=== PATIENT | male | born 1960 | race Caucasian/White ===

== ENCOUNTER 2018-12-14 07:58 | Day surgery (SDC) | payer OTHER ==
[~2018-12-14] VITALS: Ht 185.4 cm; Wt 143.3 kg
[~2018-12-14 07:58] MED LIST: ALBU90OI61; Amlodipine Bes2.5 MG; Celexa40 MG; GLIP5; HYDCHL25; IBUP800 PO; METF500 PO; METO50; Norco 5-325 Ta1 EACH PO; Robaxin-750750 MG PO
--- NOTE | 2018-12-14 08:42 | NUR ---
Ambulatory in Day SurgeryPatient states colon prep results clear. History, Chart, Medications and Allergies reviewed before start of procedure.Lungs clear T/O to Auscultation. Patient confirms NPO status and agrees with scheduled surgery. Patient States Post-Procedure ride home has been arranged.
--- NOTE | 2018-12-14 09:13 | NUR ---
12/14/18 0913 Tai Arita History, Chart, Medications and Allergies reviewed before start of procedure.MONITOR INTACT WITH CONTINUOUS PULSE OXIMETRY AND INTERMITTENT BP.3-LEAD EKG REVIEWED WITH PHYSICIAN PRIOR TO START OF PROCEDURE.O2 VIA N/C INTACT THROUGHOUT SEDATION/PROCEDURE. Patient confirms NPO status and agrees with scheduled surgery.
--- NOTE | 2018-12-14 10:38 | NUR ---
Discharge instructions reviewed with patient. Patient verbalizes understanding. Copy given to patient to take home. Discharged via wheelchair to private car for ride home. TOLERATED WATER WELL.
== END 2018-12-14 10:40 | disposition home or self-care (01) ==
LOC: ORSCMMR 07:58 → ORD 09:00 → ORSCMMR 09:00
PROVIDERS: Internal Medicine Gastroenterology
PROC: 3E0H8GC Introduction of Other Therapeutic Substance into Lower GI, Via Natural or Artificial Opening Endoscopic (ICD-10-PCS; principal; 2018-12-14 09:00)
PROC: 0DBC8ZX Excision of Ileocecal Valve, Via Natural or Artificial Opening Endoscopic, Diagnostic (ICD-10-PCS; principal; 2018-12-14 09:00)
PROC: 0DBN8ZX Excision of Sigmoid Colon, Via Natural or Artificial Opening Endoscopic, Diagnostic (ICD-10-PCS; principal; 2018-12-14 09:00)
PROC: 0DBM8ZX Excision of Descending Colon, Via Natural or Artificial Opening Endoscopic, Diagnostic (ICD-10-PCS; principal; 2018-12-14 09:00)
DX: K62.5 Hemorrhage of anus and rectum (principal); C18.7 Malignant neoplasm of sigmoid colon; D12.2 Benign neoplasm of ascending colon; D12.4 Benign neoplasm of descending colon; D12.5 Benign neoplasm of sigmoid colon; I10 Essential (primary) hypertension; E78.00 Pure hypercholesterolemia, unspecified; F32.9 Major depressive disorder, single episode, unspecified; E11.9 Type 2 diabetes mellitus without complications; E66.01 Morbid (severe) obesity due to excess calories; Z68.41 Body mass index [BMI] 40.0-44.9, adult; F17.220 Nicotine dependence, chewing tobacco, uncomplicated; Z79.84 Long term (current) use of oral hypoglycemic drugs; Z79.899 Other long term (current) drug therapy
CPT/HCPCS: 82947; 88305; J2250; J3010; J7120

== ENCOUNTER 2019-01-16 12:45 | Emergency (ER) | payer OTHER ==
[~2019-01-16] VITALS: Ht 185.4 cm; Wt 142.9 kg
[2019-01-16] MEDS ORDERED: Flomax0.4 MG PO (16:00)
== END 2019-01-16 18:51 | disposition home or self-care (01) ==
LOC: ER 12:45
DX: K94.03 Colostomy malfunction (principal); Z79.899 Other long term (current) drug therapy; Z79.84 Long term (current) use of oral hypoglycemic drugs; E11.9 Type 2 diabetes mellitus without complications; F17.220 Nicotine dependence, chewing tobacco, uncomplicated
CPT/HCPCS: 99283

== ENCOUNTER 2019-02-03 18:08 | Inpatient (IN) | payer OTHER ==
[~2019-02-03] VITALS: Ht 185.4 cm; Wt 143.5 kg
[~2019-02-03 18:08] MED LIST changes: +Flomax0.4 MG PO
[2019-02-03 19:12] LABS: BASOPHILS ABSOLUTE AUTO 0.05 K/mm3 (0.00-0.23); BASOPHILS PERCENT AUTO 1 % (0-2); EOSINOPHILS ABSOLUTE AUTO 0.39 K/mm3 (0.00-0.68); EOSINOPHILS PERCENT AUTO 4 % (0-6); Hematocrit 35.8 % (37.0-53.0); Hemoglobin 12.2 g/dL (13.5-17.5); IMMATURE GRAN ABSOLUTE AUTO 0.07 K/mm3 (0.00-0.10); IMMATURE GRAN PERCENT AUTO 1 % (0-1); LYMPHOCYTES ABSOLUTE AUTO 1.19 K/mm3 (0.84-5.20); LYMPHOCYTES PERCENT AUTO 11 % (21-46); MONOCYTES ABSOLUTE AUTO 1.02 K/mm3 (0.16-1.47); MONOCYTES PERCENT AUTO 10 % (4-13); Mean Corpuscular HGB Conc 34.1 g/dL (31.5-36.5); Mean Corpuscular Volume 94 fL (80-100); Mean Platelet Volume 10.1 fL (9.1-12.4); NEUTROPHILS ABSOLUTE AUTO 7.73 K/mm3 (1.96-9.15); NEUTROPHILS PERCENT AUTO 74 % (41-73); Platelet Count 158 K/mm3 (150-400); RDW Coefficient Variation 12.9 % (11.7-14.2); RDW Standard Deviation 44.6 fL (35.1-46.3); Red Blood Cell Count 3.81 M/mm3 (4.30-5.90); White Blood Cell Count 10.45 K/mm3 (4.00-11.30)
[2019-02-03 19:29] LABS: Albumin, Blood 1.8 g/dL (3.4-5.0); Albumin/Globulin Ratio 0.3 (0.8-1.8); Bilirubin, Total 0.9 mg/dL (0.1-1.0); Calcium, Blood 7.2 mg/dL (8.5-10.1); Creatinine, Blood 4.21 mg/dL (0.60-1.20); Globulin, Blood 5.3 g/dL (2.2-4.0); Potassium, Blood 4.9 mmol/L (3.5-5.5); Total Protein, Blood 7.1 g/dL (6.4-8.2)
[2019-02-03] MEDS ORDERED: TAMS.4ER PO (19:34)
[2019-02-03] MEDS ORDERED: Lopressor 50 mg50 MG PO (19:34)
[2019-02-03] MEDS ORDERED: Lovastatin10 MG PO (19:34)
[2019-02-03] MEDS ORDERED: Citalopram HBr40 MG PO (19:35)
[2019-02-03] MEDS ORDERED: GLIP5 PO (19:35)
[2019-02-03 20:19] LABS: Free Thyroxine 1.39 ng/dL (0.70-1.60); Magnesium, Blood 3.1 mg/dL (1.6-2.4)
[2019-02-03 20:23] LABS: Phosphorus, Blood 6.8 mg/dL (2.5-4.9); Thyroid Stimulating Hormone 2.62 uIU/mL (0.360-4.800); Triiodothyronine, Free 1.34 pg/mL (2.18-3.98)
[2019-02-03] MEDS ORDERED: ZESTRIL40 MG PO (20:30)
[2019-02-03] MEDS ORDERED: BREO ELLIPTA 11 EACH INH (20:31)
[2019-02-03] MEDS ORDERED: HYDCHL25 PO (20:33)
[2019-02-03] MEDS ORDERED: Amlodipine Bes2.5 MG PO (20:34)
[2019-02-03] MEDS ORDERED: DOK100 MG PO (20:35)
[2019-02-03] MEDS ORDERED: OXYC5 PO (20:56)
[2019-02-03 22:03] LABS: Source, Urine Clean Catch
[2019-02-03 22:05] LABS: Bilirubin, Urine Neg (Neg); Blood, Urine 5+ (Neg); Glucose Qualitative, Urine Neg (Neg); Ketones, Urine 1+ (Neg); Leukocyte Esterase, Urine 3+ (Neg); Nitrite, Urine Neg (Neg); Protein, Urine 2+ (Neg); Urobilinogen, Urine 1+ (Normal)
[2019-02-03 22:18] LABS: Appearance, Urine Cloudy (Clear); Color, Urine Yellow (P-Yellow)
[2019-02-03 22:19] LABS: Bacteria Many /hpf; Red Blood Cells, Urine 0-2 /hpf (0-2); Squamous Epithelial Cells Not Seen /hpf (Few); White Blood Cells, Urine TNTC /hpf (0-5)
[2019-02-03] MEDS ORDERED: Hair, Skin & N1 EACH PO (23:20)
[2019-02-03] MEDS ORDERED: ASCO500 PO (23:21)
--- NOTE | 2019-02-04 | NUR ---
PT ADMITTED TO ROOM ICU 9 FROM ED AT 2240. PT ADMITTED UNDER PCU STATUS. PT ABLE TO PIVOT TRANSFER FROM [facility] TO BED. ALERT AND ORIENTED. PLEASANT AND COOPERATIVE WITH CARE AND ASSESSMENT. PT HAS FRANKLIN CATHETER THAT HAS A PURULENT/CLOUDY URINE. SAMPLE HAS BEEN SENT TO LAB FOR PROCESSING. TIM PETERS NP COMES TO ROOM. ORDERS RECEIVED. PT RECEIVED ROCEPHIN WITHOUT S/S ADVERSE REACTIONS TO NOTE. PT GOOD HISTORIAN. HAS HAD RECENT BOWEL SURGERY FOR RESECTION SECONDARY TO BOWEL CANCER. WILL REVIEW CHART AND PLAN OF CARE FOR THIS PT.
[2019-02-04 05:22] LABS: BASOPHILS ABSOLUTE AUTO 0.05 K/mm3 (0.00-0.23); BASOPHILS PERCENT AUTO 1 % (0-2); EOSINOPHILS ABSOLUTE AUTO 0.39 K/mm3 (0.00-0.68); EOSINOPHILS PERCENT AUTO 4 % (0-6); Hematocrit 31.2 % (37.0-53.0); Hemoglobin 10.6 g/dL (13.5-17.5); IMMATURE GRAN ABSOLUTE AUTO 0.07 K/mm3 (0.00-0.10); IMMATURE GRAN PERCENT AUTO 1 % (0-1); LYMPHOCYTES PERCENT AUTO 15 % (21-46); MONOCYTES ABSOLUTE AUTO 1.09 K/mm3 (0.16-1.47); MONOCYTES PERCENT AUTO 11 % (4-13); Mean Corpuscular HGB 32.2 pg (26.0-34.0); Mean Corpuscular Volume 95 fL (80-100); Mean Platelet Volume 9.8 fL (9.1-12.4); NEUTROPHILS ABSOLUTE AUTO 6.79 K/mm3 (1.96-9.15); NEUTROPHILS PERCENT AUTO 69 % (41-73); Platelet Count 116 K/mm3 (150-400); RDW Coefficient Variation 12.9 % (11.7-14.2); RDW Standard Deviation 45.1 fL (35.1-46.3); Red Blood Cell Count 3.29 M/mm3 (4.30-5.90); White Blood Cell Count 9.89 K/mm3 (4.00-11.30)
--- NOTE | 2019-02-04 05:38 | NUR ---
PT TEACHING DONE CONCERNING HIS LOW NA LEVEL AND TO NOT CONSUME TOO MUCH WATER. PT VERBALIZES UNDERSTANDING. HAVE REPLACED CALCIUM. PT MOVES HIMSELF ABOUT IN BED ON HIS OWN. HAS REMOVED HIS SCD'S SECONDARY TO PT STATING THAT IT MADE HIS LEGS VERY "ITCHY" AND IT WAS PREVENTING HIM FROM SLEEPING. BLOOD DRAWN THIS AM FROM [employer] jobs WITHOUT ISSUES. AWAITING RESULTS. PT CLAIMS HE IS FEELING BETTER NOW THAN WHEN HE CAME TO HOSPITAL. WILL CONTINUE TO MONITOR PT, AND WILL REPORT OFF TO ONCOMING RN.
[2019-02-04 05:56] LABS: Albumin, Blood 1.7 g/dL (3.4-5.0); Albumin/Globulin Ratio 0.4 (0.8-1.8); Bilirubin, Total 0.9 mg/dL (0.1-1.0); Bun/Creatinine Ratio 21.3 (12.0-20.0); Calcium, Blood 7.1 mg/dL (8.5-10.1); Creatinine, Blood 3.81 mg/dL (0.60-1.20); Globulin, Blood 4.6 g/dL (2.2-4.0); Magnesium, Blood 2.8 mg/dL (1.6-2.4); Phosphorus, Blood 6.5 mg/dL (2.5-4.9); Potassium, Blood 4.8 mmol/L (3.5-5.5); Total Protein, Blood 6.3 g/dL (6.4-8.2)
--- NOTE | 2019-02-04 07:20 | NUR ---
START OF SHIFT NOTE: RECEIVED REPORT FROM NATHAN LARA RN, ASSUMED CARE, PATIENT IS AWAKE, ALERT AND ORIENTED, LUNG SOUNDS DIMINISHED BUT CLEAR, BOWEL TONES ARE PRESENT BUT HYPOACTIVE, PATIENT HAS A BELOW THE UMBILICUS INCISION THAT IS HEALED WELL, FRANKLIN CATHETER IN PLACE WITH LIGHT ORANGE URINE WITH SEDIMENT DRAINING, PATIENT REPORTED SOME DISCOMFORT FROM THE LEFT BLADDER AREA TO THE LEFT FLANK, AFEBRILE, PEDAL PULSES STRONG, POWERGLIDE IN DEENA INFUSING NS AT THIS TIME, PATIENT IS SBA ONLY, CALL LIGHT IN REACH, WILL CONTINUE TO MONITOR.
--- NOTE | 2019-02-04 08:02 | NUR ---
NEPHROLOGY CONSULT PLACED BY DR. STALLINGS, DR. KRISHNAMURTHY NOTIFIED VIA PHONE, WILL SEE PATIENT TODAY.
--- NOTE | 2019-02-04 08:57 | NUR ---
PATIENT SWALLOWED AM MEDICATION WITHOUT ANY PROBLEMS, UP TO ROOM TOILET, INSTRUCTED TO PULL CHAIN FOR ASSISTANCE, PATIENT VERBALIZED UNDERSTANDING, CALL LIGHT IN REACH, WILL CONTINUE TO MONITOR.
--- NOTE | 2019-02-04 10:01 | NUR ---
DR. GRIFFINTRATE IN TO SEE PATIENT, NO NEW ORDERS RECEIVED.
--- NOTE | 2019-02-04 11:21 | NUR ---
PATIENT SLEEPING, AWOKE EASILY TO VOICE, BLOOD GLUCOSE CHECKED, NO COVERAGE REQUIRED, PATIENT RESTING COMFORTABLY, CALL LIGHT IN REACH, WILL CONTINUE TO MONITOR.
--- NOTE | 2019-02-04 11:58 | NUR ---
YESSY SIBLEY IN TO SEE PATIENT, NEW ORDERS RECEIVED.
--- NOTE | 2019-02-04 13:15 | NUR ---
PATIENT'S CALLED AND UPDATE ON PATIENT CONDITION WAS PROVIDED, SHE WILL VISIT LATER.
--- NOTE | 2019-02-04 14:46 | NUR ---
AT BEDSIDE, ALL QUESTIONS ANSWERED WITHIN SCOPE OF PRACTICE, CALL LIGHT IN REACH, WILL CONTINUE TO MONITOR.
--- NOTE | 2019-02-04 17:39 | NUR ---
SHIFT SUMMARY NOTE: NO ACUTE EVENTS DURING THIS SHIFT, PATIENT REMAINS ALERT AND ORIENTED, VSS, C/O LEFT FLANK PAIN, RECEIVED OXYCODONE 5 MG PO THIS AM FOR SAID PAIN 06/28, SLEPT MOST OF THE DAY, SLIGHTLY ELEVATED TEMP THIS AFTERNOON AT 99.7, ROOM TEMPERATURE DECREASED AND EXTRAL BLANKETS REMOVED, FRANKLIN CATHETER CONTINUES TO DRAIN PINK/ORANGE COLORED URINE WITH WHAT APPEARS TO BE SEDIMENT, DR. KRISHNAMURTHY NOW CONSULTING FOR NEPHROLOGY, PATIENT IS ON A DIABETIC DIET, BLOOD SUGARS BELOW 150 THROUGHOUT SHIFT, NO COVERAGE NEEDED, IVF AT [facility], PATIENT UP TO ROOM TOILET TWICE, HAD TO BE REMINDED TO USE CALL LIGHT, HAD ONE BM THIS MORNING AND ONLY GAS THIS AFTERNOON, FOR DETAILS SEE SHIFT ASSESSMENT DOCUMENTATION AND NURSES NOTES, CALL LIGHT IN REACH, WILL CONTINUE TO MONITOR.
--- NOTE | 2019-02-04 18:16 | NUR ---
DR. STALLINGS PLACED CONSULT FOR GENERAL SURGERY IN AM, DR. YOLANDA MIRANDA'S ANSWERING SERVICE WAS NOTIFIED ON 02-04-19 AT 18:18 BY THIS RN.
--- NOTE | 2019-02-04 18:25 | NUR ---
REPORT CALLED TO LIONEL LESTER ON PCU, PATIENT WILL BE TRANSFERRED TO ROOM PCU4 VIA WHEELCHAIR.
--- NOTE | 2019-02-04 18:41 | NUR ---
PT TRANSFERED TO [facility] PT TRANSFERED TO [facility] AT 1841. PT IN STABLE CONDITION. CALL LIGHT IN REACH. PT ORIENTED TO UNIT. DENIES NEEDS AT THIS TIME. WILL CONTINUE TO MONITOR.
[2019-02-05 04:07] LABS: BASOPHILS ABSOLUTE AUTO 0.05 K/mm3 (0.00-0.23); BASOPHILS PERCENT AUTO 0 % (0-2); EOSINOPHILS ABSOLUTE AUTO 0.25 K/mm3 (0.00-0.68); EOSINOPHILS PERCENT AUTO 2 % (0-6); Hematocrit 34.6 % (37.0-53.0); Hemoglobin 11.7 g/dL (13.5-17.5); IMMATURE GRAN PERCENT AUTO 1 % (0-1); LYMPHOCYTES ABSOLUTE AUTO 1.35 K/mm3 (0.84-5.20); LYMPHOCYTES PERCENT AUTO 9 % (21-46); MONOCYTES PERCENT AUTO 8 % (4-13); Mean Corpuscular HGB 32.3 pg (26.0-34.0); Mean Corpuscular HGB Conc 33.8 g/dL (31.5-36.5); Mean Corpuscular Volume 96 fL (80-100); Mean Platelet Volume 10.4 fL (9.1-12.4); NEUTROPHILS ABSOLUTE AUTO 12.85 K/mm3 (1.96-9.15); NEUTROPHILS PERCENT AUTO 81 % (41-73); Platelet Count 145 K/mm3 (150-400); RDW Coefficient Variation 13.1 % (11.7-14.2); RDW Standard Deviation 46.6 fL (35.1-46.3); Red Blood Cell Count 3.62 M/mm3 (4.30-5.90)
[2019-02-05 04:22] LABS: Albumin, Blood 1.8 g/dL (3.4-5.0); Anion Gap 8 mmol/L (6-16); Blood Urea Nitrogen 87 mg/dL (8-24); Bun/Creatinine Ratio 22.8 (12.0-20.0); CO2, Blood 24 mmol/L (21-32); Calcium, Blood 7.5 mg/dL (8.5-10.1); Chloride, Blood 97 mmol/L (98-108); Creatinine, Blood 3.81 mg/dL (0.60-1.20); Glomerular Filtration Rate 17 (60-); Glucose, Blood 129 mg/dL (70-99); Magnesium, Blood 2.8 mg/dL (1.6-2.4); Phosphorus, Blood 6.5 mg/dL (2.5-4.9); Potassium, Blood 4.9 mmol/L (3.5-5.5); Sodium, Blood 129 mmol/L (136-145)
--- NOTE | 2019-02-05 05:11 | NUR ---
SHIFT SUMMARY PT SLEEPING IN ROOM COMFORTABLY AT THIS TIME. NO ACUTE CHANGES IN STATSU T/O NIGHT. PT SLEPT WELL T/O SHIFT AND DENIED NEEDS. PT WOKE EASILY TO VERBAL FOR ALL VITAL SIGN CHECKS, DENIED ANY NEEDS OR PAIN. RESP EVEN UNLABORED ONR A W/ SATS >92%. DENIES SOB. PT WAS ABLE TO GET OUT OF BED AND WALK INTO RR W/O ASSIST. PT EDUCATED ON CALLING STAFF IF HE FEELS ANY DIZZINESS UPON SITTING UP BEFORE STANDING FOR PT SAFETY. PT REPORTS UNDERSTANDING. DENIES OTHER NEEDS THIS AM. FRANKLIN CATH IN PLACE DRAINING DARK NICOLE/ORANGE URINE TO GRAVITY W/ SIGNIFICANT SEDIMENT. CALL LIGHT IN REACH.
--- NOTE | 2019-02-05 07:47 | NUR ---
AM NOTE. ASSUMED CARE OF PT APROX 0700. PT IS A&Ox4 AND SBA IN THE ROOM. PT WAS ADMITTED FOR ARF. PT HAD COLON RESECTION ON 01/04/19. SURGICAL SITE IS WELL HEALED. FRANKLIN IS INTACT DRAINING YELLOW CLOUDY/MUCOUSY/SEDIMENT URINE TO GRAVITY. PT C/O OF ABD PAIN IN THE LLQ, INCREASED PAIN TO PALP IN THIS AREA. BT PRESENT BUT HYPOACTIVE, ABD IS SLIGHTLY DISTENDED. PT HAS 1-2+ EDEMA IS HIS LEGS/FEET BILAT. L/S CLEAR T/O WITH SLIGHT COARSNESS IN THE LLL. PT IS ON RA WITH O2 SATS AT 98%. PT'S VS STABLE AT THIS TIME, TEMP IS 99.9. CALL LIGHT IN REACH, WILL CONTINUE TO MONITOR.
--- NOTE | 2019-02-05 08:00 | NUR ---
REPORT FROM GARCIA FLOWERS. ASSUMED PT CARE.
--- NOTE | 2019-02-05 08:20 | NUR ---
DR BEAR TO ROOM FOR EVAL. PT GAVE CONSENT TO HAVE SURGEON SPEAK WITH DR BOWLING AT [facility] RE PROCEDURE. PT GAVE CONSENT TO DR BEAR TO FIX SURGICALY ANY ISSUES. PT STATES HE PREFERS TO STAY IN THIS AREA. PT TO BE NPO. PLAN TO GET RECORDS FROM [facility]. PT ABLE TO HAVE MORNING MEDS.
--- NOTE | 2019-02-05 09:09 | NUR ---
PT MEDICATED WITH SCHEDULED MEDS. NICOTINE PATCH PLACED TO RIGHT SHOULDER. PT ASSISTED UP TO RR. INSTRUCTED TO PULL STRING FOR ASSISTANCE BACK TO BED. PT VERBALIZED UNDERSTANDING OF NPO.
--- NOTE | 2019-02-05 11:30 | NUR ---
DISCUSSED HTN WITH DR STALLINGS. VO FOR HYDRALAZINE RECEIVED. IN HOUSE TX HELD AT THIS TIME DUE TO POSS TX TO [facility]. PT DENIES PAIN. PT DOING DEEP BREATHING. PT PALE, CLAMMY.
--- NOTE | 2019-02-05 12:25 | NUR ---
LAB AT BEDSIDE FOR LACTIC ACID, NS BOLUS STARTED. PT ALERT AND ORIENTED TO SELF ONLY. CAN NOT RECALL WHERE HE IS OR WHY HE IS HERE. PT DENIES PAIN, PALE STILL, LESS CLAMMY. VSS, BP IMPROVED. AWAITING RE-EVAL BY DR STALLINGS.
--- NOTE | 2019-02-05 13:38 | NUR ---
Dr. Rocktrate here, new orders received for elevate lactic acid level. Plan is to transfer to [place] with accepting physician of Dr. Salcedo for anticpated surgery. The pt is receiving fluids at this time.
--- NOTE | 2019-02-05 14:41 | NUR ---
ZOSYN COMPLETE. PT RESTING COMFORTABLY. BREATHING REG, NON LABORED. SKIN LESS PALE. PT DENIES PAIN, DENIES SOB. ABD SOFT NON TENDER. FRANKLIN DRAINING NICOLE CLOUDY LIQUID. PT ALERT TO SELF. ROOM ASSIGNMENT RECEIVED AT [facility]. [id number]. WILL ARRANGE TX AND CALL REPORT.
--- NOTE | 2019-02-05 15:30 | NUR ---
PT LOADED ONTO EMS GURNEY, REPORT TO EMS STAFF. ALL BELONGINGS AND CHART SENT WITH PT.
--- NOTE | 2019-02-05 15:43 | NUR ---
REPORT TO RN AT [facility]. UNABLE TO REACH SPOUSE.
== END 2019-02-05 15:32 | disposition short-term general hospital (02) | DRG 682 ==
LOC: ER 18:08 → ICUW 20:55 → PCU 02-04 18:41
PROVIDERS: Emergency Medicine; Family Medicine; Nurse Practitioner Acute Care; Physician Assistant; ADMIT Hospitalist
DX: N17.0 Acute kidney failure with tubular necrosis (principal); A41.9 Sepsis, unspecified organism; E87.1 Hypo-osmolality and hyponatremia; Z68.41 Body mass index [BMI] 40.0-44.9, adult; N39.0 Urinary tract infection, site not specified; Z90.49 Acquired absence of other specified parts of digestive tract; N40.0 Benign prostatic hyperplasia without lower urinary tract symptoms; Z85.038 Personal history of other malignant neoplasm of large intestine; E87.5 Hyperkalemia; I10 Essential (primary) hypertension; F32.9 Major depressive disorder, single episode, unspecified; E88.01 Alpha-1-antitrypsin deficiency; E86.1 Hypovolemia; E88.09 Other disorders of plasma-protein metabolism, not elsewhere classified; J44.9 Chronic obstructive pulmonary disease, unspecified; E11.22 Type 2 diabetes mellitus with diabetic chronic kidney disease; F17.220 Nicotine dependence, chewing tobacco, uncomplicated; R91.1 Solitary pulmonary nodule; K74.60 Unspecified cirrhosis of liver; Z79.4 Long term (current) use of insulin; E66.01 Morbid (severe) obesity due to excess calories; D63.0 Anemia in neoplastic disease; N18.9 Chronic kidney disease, unspecified
CPT/HCPCS: 36415; 51702; 71045; 74176; 76770; 80053; 80069; 81001; 82330; 82570; 82947; 83605; 83735; 83930; 83935; 83970; 84100; 84300; 84439; 84443; 84481; 84540; 85025; 87077; 87086; 87186; 93005; 93010; 94640; 94760; 96360-59; 96361-59; 99285-25; C1751; J0360; J0610; J0696; J2543; J7030; J7040